=== PATIENT | female | born 1960 | race Two or more races ===

== ENCOUNTER 2024-03-09 22:44 | Emergency (ER) | payer MEDICAID ==
[~2024-03-09] VITALS: Ht 160 cm; Wt 90.7 kg
[2024-03-09 23:09] VITALS: TEMP 98.5
[2024-03-09] MEDS ORDERED: HYDROCODONE/APAP 5/325MG TABLET ONE (23:38)
[2024-03-09] MEDS: HYDROCODONE/APAP 5/325MG TABLET PO ONE (23:41)
[2024-03-10] MEDS ORDERED: HYDR-3972 PO (01:03)
[2024-03-10 01:31] VITALS: BP 138/84; O2SAT 99
== END 2024-03-10 01:31 | disposition home or self-care (01) ==
LOC: ER 22:48
DX: S42.214A Unspecified nondisplaced fracture of surgical neck of right humerus, initial encounter for closed fracture (principal); S83.91XA Sprain of unspecified site of right knee, initial encounter; S93.601A Unspecified sprain of right foot, initial encounter; S20.211A Contusion of right front wall of thorax, initial encounter; S70.01XA Contusion of right hip, initial encounter; S80.211A Abrasion, right knee, initial encounter; M79.672 Pain in left foot; J45.909 Unspecified asthma, uncomplicated; Z88.0 Allergy status to penicillin; W01.0XXA Fall on same level from slipping, tripping and stumbling without subsequent striking against object, initial encounter; Y93.01 Activity, walking, marching and hiking; Y92.480 Sidewalk as the place of occurrence of the external cause; Y99.8 Other external cause status
CPT/HCPCS: 71100-TC; 73030-TC; 73502; 73564-TC; 73630-TC